=== PATIENT | female | born 1940 | race American Indian/Alaskan Native ===

== ENCOUNTER 2017-07-01 11:18 | Outpatient (CLI) | payer MEDICARE ==
--- NOTE | 2017-07-01 12:20 | XRay Report ---
LEFT SHOULDER RADIOGRAPHS INDICATION: Shoulder pain. COMPARISON: None similar at this institution. FINDINGS: Frontal and Y views of the left shoulder demonstrate intact glenohumeral joint. Greater tuberosity and slight AC joint degenerative spurring. Aortic knob calcifications. Demineralized bones with multilevel thoracic spondylosis. Clear imaged left lung. CONCLUSION: No acute left shoulder radiographic abnormality with degenerative changes noted, as described. Thank you for the opportunity to participate in this patient's care.
== END 2017-07-01 11:19 | disposition home or self-care (01) ==
LOC: MAMMO 11:18
PROVIDERS: ATTEND Internal Medicine
DX: N64.4 Mastodynia (principal); M25.512 Pain in left shoulder; M47.894 Other spondylosis, thoracic region
CPT/HCPCS: 73030; 76642; G0204; 77066

== ENCOUNTER 2018-11-01 09:40 | Outpatient (CLI) | payer MEDICARE ==
--- NOTE | 2018-11-01 11:15 | Mammography Report ---
BILATERAL DIGITAL SCREENING MAMMOGRAM with CAD: 11/01/18 09:40:00 CLINICAL: Routine screening. COMPARISON: 07/01/17 FINDINGS: There are bilateral scattered areas of fibroglandular density.No mass, architectural distortion or suspicious calcifications. IMPRESSION: No mammographic evidence of malignancy. BI-RADS CATEGORY: 1 -- Negative RECOMMENDATION: Routine mammographic screening in one year. COMMENT: Patient follow-up letters are generated by our [employer] application.
== END 2018-11-01 09:41 | disposition home or self-care (01) ==
LOC: EDBD 09:40 → MAMMO 09:40
PROVIDERS: ATTEND Internal Medicine
DX: Z12.31 Encounter for screening mammogram for malignant neoplasm of breast (principal)
CPT/HCPCS: 77067